=== PATIENT | female | born 1970 | race Caucasian/White ===

== ENCOUNTER → 2018-11-06 | Day surgery (SDC) | payer BC ==
[~2018-11-06] MED LIST: Morphine 2 MG/ML Syringe IVPUSH ONE; Ondansetron 4 MG/2 ML SDV IVPUSH ONE; Propofol 200 MG/20 ML SDV ONE; Sodium Chloride 0.9% 10 ML Syringe FLUSH PRN
[2018-11-06] MEDS: Lactated Ringers 1,000 ML IV SCH ×3 (11:42→18:02)
--- NOTE | 2018-11-06 12:18 | PCM.PN ---
- General Info Date of Service: 11/06/18 - Review of Systems Systems Review Comment:: 48-year-old female referred for her initial screening colonoscopy. She denies any recent change in bowel pattern and also denies any family history of colon cancer. I have discussed the proposed colonoscopy with the patient. Risks such as but not limited to bleeding and GI injury reviewed. She agrees to proceed. Her recent history and physical is reviewed and no significant changes are noted. - Patient Data Vitals - Most Recent: Last Vital Signs Temp 96.8 F 11/06/18 11:37 Pulse 77 11/06/18 11:37 Resp 16 11/06/18 11:37 BP 122/85 11/06/18 11:37 Pulse Ox 97 11/06/18 11:37 Weight - Most Recent: 96.615 kg Med Orders - Current: Current Medications Lactated Ringer's (Ringers, Lactated) 1,000 mls @ 125 mls/hr IV ASDIRECTED HANSA Last Admin: 11/06/18 11:42 Dose: 125 mls/hr Sodium Chloride (Saline Flush) 10 ml FLUSH ASDIRECTED PRN PRN Reason: Keep Vein Open Discontinued Medications Propofol (Diprivan 20 Ml) Confirm Administered Dose 400 mg .ROUTE .STK-MED ONE Stop: 11/06/18 11:27 - Problem List Review Problem List Initiated/Reviewed/Updated: Yes - My Orders Last 24 Hours: My Active Orders 11/06/18 11:30 Patient Status [ADT] Routine Peripheral IV Care [RC] . DIRECTED Verify Patient Consent Obtain [RC] ASDIRECTED Lactated Ringers [Ringers, Lactated] 1,000 ml IV ASDIRECTED Sodium Chloride 0.9% [Saline Flush] 10 ml FLUSH ASDIRECTED PRN Peripheral IV Insertion Adult [OM.PC] Routine - Assessment Assessment:: Colon Cancer Screening - Plan Plan:: Colonoscopy
--- NOTE | 2018-11-06 13:54 | PCM.OPNOTE ---
- General Post-Op/Procedure Note Date of Surgery/Procedure: 11/06/18 Operative Procedure(s): Colonoscopy with Polypectomy Findings: 2 cm Cecal Polyp Pre Op Diagnosis: Colon cancer screening Post-Op Diagnosis: Colonoscopy with polypectomy Anesthesia Technique: MAC Primary Surgeon: Kishor Villaseñor Pathology: Cecal polyp Output, Urine Amount: 0 EBL in mLs: 0 Complications: None Condition: Good
--- NOTE | 2018-11-06 18:27 | PCM.PN ---
- General Info Date of Service: 11/06/18 - Review of Systems Systems Review Comment:: See Dictated Note - Patient Data Vitals - Most Recent: Last Vital Signs Temp 96.7 F 11/06/18 14:30 Pulse 71 11/06/18 16:32 Resp 16 11/06/18 16:32 BP 94/63 11/06/18 16:32 Pulse Ox 100 11/06/18 16:32 Weight - Most Recent: 96.615 kg I&O - Last 24 Hours: Intake & Output 11/06/18 11/06/18 11/06/18 06:59 14:59 22:59 Output Total 0 Balance 0 Med Orders - Current: Current Medications Lactated Ringer's (Ringers, Lactated) 1,000 mls @ 125 mls/hr IV ASDIRECTED HANSA Last Admin: 11/06/18 18:02 Dose: 125 mls/hr Morphine Sulfate (Morphine) 2 mg IVPUSH ONETIME ONE Stop: 11/06/18 18:07 Ondansetron HCl (Zofran) 4 mg IVPUSH ONETIME ONE Stop: 11/06/18 18:07 Sodium Chloride (Saline Flush) 10 ml FLUSH ASDIRECTED PRN PRN Reason: Keep Vein Open Discontinued Medications Ondansetron HCl (Zofran) 4 mg IVPUSH ONETIME ONE Stop: 11/06/18 14:18 Last Admin: 11/06/18 14:21 Dose: 4 mg Propofol (Diprivan 20 Ml) Confirm Administered Dose 400 mg .ROUTE .STK-MED ONE Stop: 11/06/18 11:27 - Problem List Review Problem List Initiated/Reviewed/Updated: Yes - My Orders Last 24 Hours: My Active Orders 11/06/18 11:30 Patient Status [ADT] Routine Peripheral IV Care [RC] . DIRECTED Verify Patient Consent Obtain [RC] ASDIRECTED Lactated Ringers [Ringers, Lactated] 1,000 ml IV ASDIRECTED Sodium Chloride 0.9% [Saline Flush] 10 ml FLUSH ASDIRECTED PRN Peripheral IV Insertion Adult [OM.PC] Routine 11/06/18 13:56 Ready for Discharge [RC] PER UNIT ROUTINE 11/06/18 17:27 Abdomen 2V AP Flat Upright [CR] Routine 11/06/18 18:06 Morphine 2 mg IVPUSH ONETIME ONE Ondansetron [Zofran] 4 mg IVPUSH ONETIME ONE - Assessment Assessment:: Colon Perforation from Colonoscopy - Plan Plan:: Transfer to [facility] in [place] for Exploratory Laparotomy and repair of colon perforation.
--- NOTE | 2018-11-06 18:49 | OR ---
Date of Procedure: 11/06/2018 PREOPERATIVE DIAGNOSIS: Colon cancer screening. POSTOPERATIVE DIAGNOSIS: Colon polyp. OPERATION PERFORMED: Colonoscopy with polypectomy. INDICATIONS FOR SURGERY: This 48-year-old female was referred for initial screening colonoscopy. She denies any recent change in bowel habits or history of rectal bleeding. FINDINGS: The patient has a single sessile polyp noted in the cecum. It is approximately 2 cm in size. It is soft. The remainder of the colon lining appeared normal. DESCRIPTION OF PROCEDURE: The patient was taken to the operating room. She was given intravenous sedation, and with her in the left lateral decubitus position, digital rectal exam was performed showing no rectal masses. The Olympus colonoscope was inserted into the rectum. Retroflexed examination of the rectal canal was performed. The scope was then carefully advanced under direct visualization through the entire length of the colon until the cecum was reached. Cecal acquisition was confirmed by noting the normal internal cecal anatomy including the appendiceal orifice and ileocecal valve. In the cecum, the above-described polyp was identified. This was removed with a cautery snare. The polyp was able to be suctioned and retrieved into a polyp trap. Careful inspection of the polypectomy site was carried out. There was some cautery artifact noted at the polypectomy site, but the site appeared to be intact. There was no indication of any bleeding or sign of any complication at the polypectomy site. The scope was then slowly withdrawn sequentially re- examining the colonic segments until the entire colon and rectum have been fully examined. Attempt was made to remove as much air from the colon as possible. The scope was removed and the patient was taken from the operating room in satisfactory condition. ESTIMATED BLOOD LOSS: 0. COMPLICATIONS: None. PROGNOSIS: Good. SIMEON Villaseñor MD /[id number]
[2018-11-06 19:05] LABS: CHLORIDE,CL 106 mmol/L (98-107); SODIUM,NA 141 mmol/L (136-145)
== END ==
LOC: LL.SDS 11:25
PROVIDERS: ATTEND Surgery
DX: Z12.11 Encounter for screening for malignant neoplasm of colon (principal); D12.0 Benign neoplasm of cecum; E78.00 Pure hypercholesterolemia, unspecified; E06.3 Autoimmune thyroiditis; E03.8 Other specified hypothyroidism; M79.642 Pain in left hand; M79.641 Pain in right hand; E66.9 Obesity, unspecified; Z68.36 Body mass index [BMI] 36.0-36.9, adult; Z87.891 Personal history of nicotine dependence; Z79.1 Long term (current) use of non-steroidal anti-inflammatories (NSAID); Z79.899 Other long term (current) drug therapy
CPT/HCPCS: 36415; 45385; 74019; 80048; 85025; J2270; J2405; J2704; J7120

== ENCOUNTER → 2022-01-04 | Day surgery (SDC) | payer BC ==
[~2022-01-04] MED LIST changes: +Lactated Ringers 1,000 ML IV SCH; +Midazolam 1 MG/ML 2 ML SDV ONE; -Morphine 2 MG/ML Syringe IVPUSH ONE; -Ondansetron 4 MG/2 ML SDV IVPUSH ONE
== END | disposition home or self-care (01) ==
LOC: LL.SDS 09:39
PROVIDERS: ATTEND Surgery
DX: Z12.11 Encounter for screening for malignant neoplasm of colon (principal); E03.8 Other specified hypothyroidism; E11.22 Type 2 diabetes mellitus with diabetic chronic kidney disease; N18.30 Chronic kidney disease, stage 3 unspecified; G47.33 Obstructive sleep apnea (adult) (pediatric); K21.9 Gastro-esophageal reflux disease without esophagitis; Z79.890 Hormone replacement therapy; Z79.899 Other long term (current) drug therapy; Z86.010 Personal history of colon polyps; E78.5 Hyperlipidemia, unspecified; E66.9 Obesity, unspecified; Z68.33 Body mass index [BMI] 33.0-33.9, adult
CPT/HCPCS: 00812; J2250; J2704; J7120